=== PATIENT | female | born 1990 | race Caucasian/White ===

== ENCOUNTER → 2019-08-22 13:06 | Outpatient (BNVA) | payer OTHER, SELFPAY | PROVIDERS: Visit Provider Registered Nurse | DX: Z20.828 Contact with and (suspected) exposure to other viral communicable diseases (principal) | CPT/HCPCS: 87635 ==

== ENCOUNTER 2021-02-11 12:48 | Outpatient (CLI) | payer OTHER, SELFPAY ==
--- NOTE | 2021-02-11 13:00 | MR_ITS ---
WS: [id number] MRI BRAIN WITHOUT CONTRAST HISTORY: Headache, unspecified/ ANESTHESIA OF SKIN COMPARISON: None available. TECHNIQUE: Diffusion imaging, multiplanar T1, T2 and FLAIR imaging obtained. Patient refused IV contrast. No evidence for acute infarct or hemorrhage. Ibarra-white matter differentiation is normal. No remote or acute infarcts are volume loss. Ventricles and extra-axial spaces are normal. No inferior displacement of cerebellar tonsils. The sella turcica and pituitary gland are unremarkabl e. No abnormality noted involving the cranial nerves or the cerebellopontine angles on this unenhance d study. Normal fat Meckel's cave. Dural venous sinuses and [place] of [place] demonstrate no abnormality on this unenhanced studies. Paranasal sinuses: Very small amount of fluid in the maxillary sinuses bilaterally. Mastoid air cells: Normal. Calvarium and scalp: Intact. MR/MR head wo con* [id number] IMPRESSION: 1. No prior infarct or hemorrhage or signal abnormality. 2. Patient refused IV contrast. Cannot evaluate for subtle enhancement of the cranial nerves. 3. Very small amount of fluid in the maxillary sinuses.
== END 2021-02-11 12:49 | disposition home or self-care (01) ==
PROVIDERS: Visit Provider Nurse Practitioner Family
DX: R20.0 Anesthesia of skin (principal); R51.9 Headache, unspecified
CPT/HCPCS: 70551

== ENCOUNTER 2021-10-10 21:21 | Emergency (ER) | payer MEDICAID, SELFPAY ==
[2021-10-10 21:39] VITALS: BP 127/78; PULSE 74; RESP 18; TEMP 36.6; O2SAT 97; BMI 24.6
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
== END 2021-10-10 22:09 | disposition home or self-care (01) ==
PROVIDERS: Emergency Provider Physician Assistant; PCP Nurse Practitioner Family
DX: T23.161A Burn of first degree of back of right hand, initial encounter (principal); X16.XXXA Contact with hot heating appliances, radiators and pipes, initial encounter
CPT/HCPCS: 99281

== ENCOUNTER 2021-11-06 20:40 | Emergency (ER) | payer MEDICAID, SELFPAY ==
[2021-11-06 20:59] VITALS: BP 109/70; PULSE 69; RESP 16; TEMP 37; O2SAT 98; BMI 25.7
--- NOTE | 2021-11-06 21:07 | ED_ITS ---
HPI - General Adult General: Chief complaint: Urogenital-Male Stated complaint: Wants to be tested for STDs Time Seen by Provider: 11/06/21 21:06 History of Present Illness: Transgender female comes in today for complaints of itching and penile lesions and scrotal lesions. Patient denies significant pain or discomfort. Patient is biologically male transitioning to be female. Patient appears in no acute distress. Patient is requesting evaluation for STIs. Associated symptoms: Reports rash; Deny chest pain or dyspnea Review of Systems Const: Denies: fever(s) Card: Denies: chest pain Resp: Denies: dyspnea Skin/Breast: Reports: rash and pruritus PFSH ED PFSH: Medical History Exposure to COVID-19 virus Social History Adopted: No Caregiver/support person: Yes Lives independently: Yes Current occupational status: employed History of recent travel: No Sexually active: Yes Current gender identity: Trans [id number] Physical Exam Const: COMMON NORMALS: alert HENMT: HEAD & SCALP: normal to inspection Neck/C-Spine: COMMON NORMALS: full ROM Resp: COMMON NORMALS: normal respiratory effort Cardio: COMMON NORMALS: regular rate and regular rhythm RATE: regular rate RHYTHM: regular rhythm Neuro: SENSORIUM/ORIENTATION: Yes alert Course Vital Signs: Vital signs: Vital Signs Temperature 98.6 F 11/06/21 21:16 Pulse Rate 69 11/06/21 21:16 Respiratory Rate 16 11/06/21 21:16 Blood Pressure 109/70 11/06/21 21:16 Pulse Oximetry 98 11/06/21 21:16 Oxygen Delivery Me thod 11/06/21 21:16 MDM - General Adult Medical Decision Making 31-year-old transgendered female comes in today for concerns of lesions to the scrotum and penis. Patient also reports itching and discomfort. On exam there is no noticeable lesions to either the scrotum or penis. No significant rashes noted. Differential diagnosis includes but not limited to STI, dermatitis, malingering. Cultures of the lesions were sent to lab for bacterial and viral. Blood was sent for RPR and HIV testing. Urine was sent for gonorrhea and chlamydia. Reviewed exam with patient with recommendations for follow-up. Patient reported understanding. Lab Data Laboratory Results Urine Color Yellow (Yellow) 11/06/21 21:10 Urine Appearance Clear (CLEAR) 11/06/21 21:10 Urine pH 6.5 (5-7) 11/06/21 21:10 Ur Specific Vaughn 1.010 (1.005-1.030) 11/06/21 21:10 Urine Protein Neg (Negative) 11/06/21 21:10 Urine Glucose (UA) Norm (Normal) 11/06/21 21:10 Urine Ketones Negative (Negative) 11/06/21 21:10 Urine Blood Neg (Negative) 11/06/21 21:10 Urine Nitrate Negative (Negative) 11/06/21 21:10 Urine Bilirubin Neg (Negative) 11/06/21 21:10 Urine Urobilinogen Norm mg/dL (Negative) 11/06/21 21:10 Ur Leukocyte Esterase Negative (Negative) 11/06/21 21:10 Discharge Plan Discharge Patient Disposition: Home Clinical Impression: Exposure to STD, Dermatitis Condition: Stable Prescriptions: New hydrocortisone 2.5 % cream 1 applic topical BID PRN (Reason: skin irritation) Qty: 30 0RF No Action estradiol 1 mg tablet 0.5 mg PO DAILY gabapentin 600 mg tablet 600 mg PO BID spironolactone 50 mg tablet 50 mg PO DAILY baclofen 10 mg tablet 10 mg PO TID PRN (Reason: muscle spasm) Qty: 30 0RF Discharge Orders: Discharge ED (Routine); Ordered 11/06/21 Ordered By: Natalio Davalos Discharge Diet: Usual diet Discharge Activity: Increase activity as tolerated Patient Instructions: Sexually Transmitted Diseases (ED), Dermatitis (ED) Activity Restrictions/Additional Instructions: Avoid harsh soaps which may be contributing to your itching and skin rash. Use hydrocortisone cream twice a day as needed for itching and discomfort. Testing will take at least 1 week for STDs. The testing for the monkey pox may take longer. Follow-up with primary care for further instruction and evaluation. Return to ER for new concerns. Coding Level of Care Code ED Beater Engineer Helper for Gail Fwd Exam Detailed
[2021-11-06 21:16] VITALS: BP 109/70; PULSE 69; RESP 16; TEMP 37; O2SAT 98
[2021-11-06 21:20] LABS: Add Urine Microscopic? NO; Charge for UA Resulting for Rev
[2021-11-06 21:33] LABS: Urine Appearance Clear (CLEAR); Urine Color Yellow (Yellow); pH Urine 6.5 (5-7)
[2021-11-06 21:34] LABS: Bilirubin Urine Neg (Negative); Blood Urine Neg (Negative); Glucose Urine UA Norm (Normal); Ketones Urine Negative (Negative); Leukocyte Esterase Urine Negative (Negative); Nitrate Urine Negative (Negative); Protein Urine Neg (Negative); Urobilinogen Urine Norm (Negative)
[2021-11-06 23:12] LABS: HIV 1 & 2 Antibody Non-Reactive (Non-Reactiv); HIV 1 & 2 Antigen Non-Reactive (Non-Reactiv)
[2021-11-10 10:32] LABS: RPR w(Moniotor) w/REFL Titer NON-REACTIVE (NON-REACTIVE)
== END 2021-11-06 22:05 | disposition home or self-care (01) ==
PROVIDERS: Emergency Provider Nurse Practitioner Family
DX: L30.9 Dermatitis, unspecified (principal); Z20.2 Contact with and (suspected) exposure to infections with a predominantly sexual mode of transmission
CPT/HCPCS: 81003; 86592; 87491; 87591; 87806; 99283

== ENCOUNTER 2021-12-25 20:16 | Emergency (ER) | payer MEDICAID, SELFPAY ==
[2021-12-25 20:23] VITALS: BP 132/85; PULSE 71; RESP 16; TEMP 36.1; O2SAT 98
--- NOTE | 2021-12-25 21:44 | ED_ITS ---
HPI - General Adult General: Chief complaint: General Medical Stated complaint: R side face numbness Time Seen by Provider: 12/25/21 21:44 History of Present Illness: Ariadne Carlson is a 31-year-old transgender individual male to female who presents to the emergency department due to c oncern over facial pain. She reports onset of symptoms in approximately January without specific known provoking event. Previously she was treated for trigeminal neuralgia however that physician is no longer in the area and gabapentin at that time was not significant relieving. She did have an MRI without contrast which did not show a clear etiology. Over the past few weeks symptoms have worsened. Does associate headaches, intermittent vision changes which is monocular and improves with closing right eye though these are intermittent as well. At times paresthesias in the right upper and lower extremity. Intensity symptoms when present is moderate to severe. Course has persisted. No other specific changes in health, exacerbating, or alleviating factors identified. Onset (ago): month(s) Severity: moderate and severe Relieving factors: none Exacerbating factors: movement Associated symptoms: Reports headache(s) and other Review of Systems General: Reports: 10 or more systems reviewed and unremarkable except in HPI and below Neuro: Reports: headache(s) PFSH ED PFSH: Medical History Exposure to COVID-19 virus Psychiatric care Social History (Updated 12/29/21 @ 09:10 by Fabian Gurrola LPN) Smoking and tobacco status: current every day smoker cigarettes Packs smoked per day: 0.25 Years cigarettes smoked: 15 Quit status (tobacco): has tried quititng Number of times tried to quit tobacco: 3 Second hand smoke exposure: Yes Smoking risk assessment/counseling performed?: No Alcohol intake: current Alcohol intake frequency: few times a week Alcohol type: hard liquor Desire information about alcohol rehabilitation?: No Counseling given: No Desire information about substance/drug rehabilitation?: No Counseling given: No Adopted: No Caregiver/support person: Yes Lives independently: Yes Current occupational status: employed History of recent travel: No Sexually active: Yes Current gender identity: Trans [id number] Physical Exam Const: COMMON NORMALS: patient oriented x3 and alert GENERAL APPEARANCE: cooperative and well developed HENMT: COMMON NORMALS: normocephalic, atraumatic, external ears normal, EAC's normal and TM's normal bilaterally HEAD & SCALP: normocephalic and atraumatic EXTERNAL EAR: Yes external ears normal and Yes mastoids normal EXTERNAL AUDITORY CANAL: EAC's normal TYMPANIC MEMBRANE: TM's normal bilaterally THROAT: posterior oropharynx normal OTHER: No exacerbation of symptoms with percussion of trigeminal region. No overlying skin lesions. Eye: COMMON NORMALS: conjunctivae normal CONJUNCTIVA: Yes conjunctivae normal SCLERA: sclerae normal Neck/C-Spine: COMMON NORMALS: supple GENERAL: Yes trachea midline Resp: COMMON NORMALS: normal respiratory effort EFFORT & INSPECTION: Yes able to speak in complete sentences Cardio: COMMON NORMALS: regular rate and regular rhythm RATE: regular rate RHYTHM: regular rhythm GI: COMMON NORMALS: Soft to palpation PALPATION: Yes Soft to palpation and No Tenderness to palpation present (GI) PERCUSSION: normal to percussion Extremity: GENERAL: Yes normal exam except as noted and No edema Neuro: COMMON NORMALS: patient oriented x3, CN's II-XII intact bilaterally and moves all extremities SENSORIUM/ORIENTATION: Yes alert and No Orientation impaired Psych: COMMON NORMALS: mental status grossly normal and Normal thought process present THOUGHT PROCESS: Normal thought process present Course Vital Signs: Vital signs: Vital Signs Temperature 97.0 F L 12/25/21 20:23 Pulse Rate 71 12/25/21 20:23 Respiratory Rate 16 12/25/21 20:23 Blood Pressure 132/85 12/25/21 20:23 Pulse Oximetry 98 12/25/21 20:23 Oxygen Delivery Me thod 12/25/21 20:23 MDM - General Adult Medical Decision Making 31-year-old transgender individual presenting to the emergency department due to facial numbness. There are no focal deficits appreciated on clinical exam. Pain is not reproducible with palpation though does occur intermittently throughout exam. Exact etiology is unclear. Treat patient with migraine cocktail that provided some relief. Prior MRI reviewed. Laboratory studies without acute pathology to explain symptoms. Given history, exam, improvement, and description of symptoms patient is appropriate for outpatient management. Reasonable to trial carbamazepine for possible trigeminal neuralgia. Patient is agreeable with plan and satisfactory for outpatient management. Return precautions discussed. Medical Records I reviewed the patient's medical records. Lab Data I reviewed the patient's lab results. : 12/25/21 23:15 12/25/21 23:15 Laboratory Results WBC 7.3 10^3/uL (4.0-10.0) 12/25/21 23:15 Corrected WBC Cancelled 12/25/21 22:53 RBC 4.01 10^6/uL (4.1-5.3) L 12/25/21 23:15 Hgb 12.4 g/dL (11.5-15.3) 12/25/21 23:15 Hct 36.0 % (37.0-47.0) L 12/25/21 23:15 MCV 89.8 fl (81-99) 12/25/21 23:15 MCH 30.9 pg (28.0-34.0) 12/25/21 23:15 MCHC 34.4 g/dL (30.0-36.0) 12/25/21 23:15 RDW 12.0 % (12.1-15.1) L 12/25/21 23:15 Plt Count 268 10^3/cmm (130-400) 12/25/21 23:15 MPV 9.0 fL (7.4-10.4) 12/25/21 23:15 Gran % Cancelled 12/25/21 22:53 Neut % (Auto) 50.1 % 12/25/21 23:15 Lymph % (Auto) 36.0 % 12/25/21 23:15 Monroe % (Auto) 9.2 % 12/25/21 23:15 Eos % (Auto) 3.9 % 12/25/21 23:15 Baso % (Auto) 0.7 % 12/25/21 23:15 Neut # (Auto) 3.64 10^3/uL (1.8-7.7) 12/25/21 23:15 Lymph # (Auto) 2.6 10^3/uL (0.8-4.8) 12/25/21 23:15 Monroe # (Auto) 0.7 10^3/uL (0.2-0.9) 12/25/21 23:15 Eos # (Auto) 0.3 10^3/uL (0.0-0.8) 12/25/21 23:15 Baso # (Auto) 0.1 10^3/uL (0.0-0.1) 12/25/21 23:15 Absolute Gran (auto) Cancelled 12/25/21 22:53 Nucleated RBC % (auto) 0 % 12/25/21 23:15 Nucleated RBCs # 0.0 /100WBC 12/25/21 23:15 Sodium 140 mmol/L (136-145) 12/25/21 23:15 Potassium 4.2 mmol/L (3.5-5.1) 12/25/21 23:15 Chloride 103 mmol/L (98-107) 12/25/21 23:15 Carbon Dioxide 27 mmol/L (22-29) 12/25/21 23:15 Anion Gap 14.2 (5-19) 12/25/21 23:15 BUN 15 mg/dL (6-20) 12/25/21 23:15 Creatinine 0.9 mg/dL (0.5-0.9) 12/25/21 23:15 GFR Calculation 74.0 mL/min (90-130) L 12/25/21 23:15 Glucose 91 mg/dL (65-115) 12/25/21 23:15 Calculated Osmolality 290 mOsm/kg (285-295) 12/25/21 23:15 Calcium 9.8 mg/dL (8.5-10.5) 12/25/21 23:15 Total Bilirubin 0.5 mg/dL (0.15-1.2) 12/25/21 23:15 AST 11 U/L (0-32) 12/25/21 23:15 ALT 8 U/L (0-33) 12/25/21 23:15 Alkaline Phosphatase 52 U/L (35-105) 12/25/21 23:15 Total Protein 7.1 g/dL (6.6-8.7) 12/25/21 23:15 Albumin 4.2 g/dL (3.5-5.2) 12/25/21 23:15 Globulin 2.9 g/dL (1.3-4.6) 12/25/21 23:15 Discharge Plan Discharge Patient Disposition: Home Clinical Impression: Atypical facial pain, Headache Condition: Stable Prescriptions: New carbamazepine 100 mg tablet extended release 12 hr 100 mg PO BID Qty: 60 0RF Rx Instructions: begin at 100 mg twice daily, increase to 100 in AM and 200 PM after 3 days then 200 and 200 after 3 days Reglan 10 mg tablet 10 mg PO Q6H PRN (Reason: headache) Qty: 20 0RF No Action estradiol 1 mg tablet 0.5 mg PO DAILY gabapentin 600 mg tablet 600 mg PO BID baclofen 10 mg tablet 10 mg PO TID PRN (Reason: muscle spasm) Qty: 30 0RF spironolactone 50 mg tablet 100 mg PO DAILY trazodone 50 mg tablet 100 mg PO .HS PRN (Reason: insomnia) Qty: 60 1RF fluoxetine [Prozac] 20 mg capsule 20 mg PO DAILY Qty: 30 1RF hydrocortisone 2.5 % cream 1 applic topical BID PRN (Reason: skin irritation) Qty: 30 0RF Discharge Orders: Discharge ED (Routine); Ordered 12/26/21 Ordered By: Fabian Cook Discharge Diet: Usual diet Discharge Activity: Increase activity as tolerated Patient Instructions: Trigeminal Neuralgia (ED), Acute Headache (ED), Pain Management Activity Restrictions/Additional Instructions: Thank you for visiting the emergency department. You were seen and evaluated for facial pain. The exact cause of your symptoms is unclear. I recommend follow-up with primary care for consideration of further referral. Please watch for side effects as discussed with new prescriptions. Return to the emergency department for worsening symptoms, any new neurologic deficits, or anything else that you are concerned about and feel needs emergency department evaluation. Coding Level of Care Code ED Certified Residential Medication Aide for Gail Leung Exam Comprehensive
--- NOTE | 2021-12-25 23:06 | PC.NURSE ---
IV attempt x 2 unsuccessful. pt refuses further attempt. provider notified.
[2021-12-25 23:25] LABS: Basophils # 0.1 10^3/uL (0.0-0.1); Basophils % 0.7 %; Eosinophils # 0.3 10^3/uL (0.0-0.8); Eosinophils % 3.9 %; Hemoglobin 12.4 g/dL (11.5-15.3); Lymphocytes # 2.6 10^3/uL (0.8-4.8); Mean Corpuscular HGB Conc 34.4 g/dL (30.0-36.0); Mean Corpuscular Hemoglobin 30.9 pg (28.0-34.0); Mean Corpuscular Volume 89.8 fl (81-99); Monocytes # 0.7 10^3/uL (0.2-0.9); Monocytes % 9.2 %; Neutrophils # 3.64 10^3/uL (1.8-7.7); Neutrophils % 50.1 %; Nucleated Red Blood Cells % 0 %; Platelet Count 268 10^3/cmm (130-400); Red Blood Count 4.01 10^6/uL (4.1-5.3); White Blood Count 7.3 10^3/uL (4.0-10.0)
[2021-12-25] MEDS: diphenhydrAMINE 25 mg Capsule PO (23:28)
[2021-12-25] MEDS: metoclopramide 10 mg Tablet PO (23:28)
[2021-12-25] MEDS: acetaminophen 500 mg Tablet 1000 MG PO (23:28)
[2021-12-25 23:50] LABS: Alanine Aminotransferase 8 U/L (0-33); Albumin Level 4.2 g/dL (3.5-5.2); Alkaline Phosphatase 52 U/L (35-105); Anion Gap 14.2 (5-19); Aspartate Amino Transferase 11 U/L (0-32); Blood Urea Nitrogen 15 mg/dL (6-20); Calcium 9.8 mg/dL (8.5-10.5); Carbon Dioxide 27 mmol/L (22-29); Chloride 103 mmol/L (98-107); Globulin 2.9 g/dL (1.3-4.6); Glucose 91 mg/dL (65-115); Osmolality Calculated 290 mOsm/kg (285-295); Potassium 4.2 mmol/L (3.5-5.1); Sodium 140 mmol/L (136-145); Total Bilirubin 0.5 mg/dL (0.15-1.2); Total Protein 7.1 g/dL (6.6-8.7)
--- NOTE | 2021-12-26 11:30 | DCPLANNER ---
tool crib manager had message to speak with patient about getting established with a primary care physician. tool crib manager called phone number [phone], phone number is not accepting phone calls at this time. tool crib manager unable to speak with patient or leave a voicemail for patient.
== END 2021-12-26 00:45 | disposition home or self-care (01) ==
PROVIDERS: Emergency Provider Emergency Medicine
DX: R51.9 Headache, unspecified (principal); F17.210 Nicotine dependence, cigarettes, uncomplicated
CPT/HCPCS: 36415; 80053; 85025; 99283; J8597

== ENCOUNTER 2022-01-05 08:36 | Emergency (ER) | payer MEDICAID, SELFPAY ==
[2022-01-05 08:54] VITALS: BMI 27.0
[2022-01-05 09:00] VITALS: BP 124/87; PULSE 81; RESP 18; TEMP 36.4; O2SAT 97
--- NOTE | 2022-01-05 09:04 | PC.NURSE ---
pt in vertical flow
--- NOTE | 2022-01-05 09:07 | W.ED.BACK ---
HPI - Back Pain/Injury General: Chief Complaint: Back Pain/Injury Stated Complaint: Back pain Time Seen by Provider: 01/05/22 08:46 History of Present Illness: Patient is a 31-year-old female comes to the ED with lower back pain. 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 and felt some pain in the left lower back. Pain is not improved over the past couple days. Lifting any objects causes pain in her lower back. Denies any cauda equina symptoms or any pain radiating down her leg. Associated symptoms: Deny abdominal pain, chills, dysuria, fatigue, fever(s), hematuria, nausea or vomiting Review of Systems Const: Denies: fever(s), chills or fatigue Eyes: Denies: change in vision or eye discomfort ENMT: Denies: throat pain, odynophagia, nasal discharge or nasal congestion Card: Denies: chest pain, palpitations, edema, swelling of feet/ankles, dyspnea on exertion or orthopnea Resp: Denies: dyspnea, productive cough or non-productive cough GI: Denies: abdominal pain, nausea, vomiting, diarrhea, constipation or hematochezia : Denies: flank pain, dysuria or hematuria Musc: Reports: back pain; Denies: neck pain or extremity swelling Skin/Breast: Denies: rash or new lesions Neuro: Denies: headache(s), numbness in extremities or weakness in extremities PFS ED PFSH: Medical History (Updated 01/06/22 @ 07:29 by MICHAEL Centeno) Exposure to COVID-19 virus No pertinent family history Psychiatric care Social History Smoking and tobacco status: current every day smoker cigarettes Packs smoked per day: 0.25 Years cigarettes smoked: 15 Quit status (tobacco): has tried quititng Number of times tried to quit tobacco: 3 Second hand smoke exposure: Yes Smoking risk assessment/counseling performed?: No Alcohol intake: current Alcohol intake frequency: few times a week Alcohol type: hard liquor Desire information about alcohol rehabilitation?: No Counseling given: No Desire information about substance/drug rehabilitation?: No Counseling given: No Adopted: No Caregiver/support person: Yes Lives independently: Yes Current occupational status: employed History of recent travel: No Sexually active: Yes Current gender identity: Trans [id number] Physical Exam Const: COMMON NORMALS: no acute distress, patient oriented x3 and alert GENERAL APPEARANCE: cooperative and comfortable HENMT: COMMON NORMALS: normocephalic HEAD & SCALP: normocephalic MOUTH: Normal oral and palatal mucosa present THROAT: posterior oropharynx normal and uvula midline Neck/C-Spine: COMMON NORMALS: supple GENERAL: Yes normal visual inspection Resp: COMMON NORMALS: normal respiratory effort, No retractions, No use of accessory muscles and clear to auscultation bilaterally AUSCULTATION: clear to auscultation bilaterally Cardio: COMMON NORMALS: regular rate, regular rhythm, S1 normal heart sound present, S2 normal heart sound present, No gallops present (Cardio), No clicks present (Cardio), No murmurs present (Cardio) and Peripheral pulses 2+ throughout RATE: regular rate RHYTHM: regular rhythm HEART SOUNDS: S1 normal heart sound present and S2 normal heart sound present PERIPHERAL PULSES: Peripheral pulses 2+ throughout GI: COMMON NORMALS: Normal to inspection, nondistended, normoactive bowel sounds present, Soft to palpation, non-tender and no masses PALPATION: Yes Soft to palpation : COMMON NORMALS: Yes no CVA tenderness BLADDER/KIDNEY EXAM: Yes no CVA tenderness Back/Pelvis: COMMON NORMALS: no CVA tenderness LUMBAR SPINE/LOWER BACK: Yes lumbar ROM normal, No lumbar spinal tenderness and Yes paraspinal muscle tenderness Lumbar paraspinal muscle tenderness: left Extremity: COMMON NORMALS: normal to inspection Neuro: COMMON NORMALS: patient oriented x3 SENSORIUM/ORIENTATION: Yes alert GAIT: Yes Normal gait present Skin: GENERAL SKIN EXAM: dry skin Course Vital Signs: Vital signs: Vital Signs Temperature 97.5 F L 01/05/22 09:00 Pulse Rate 81 01/05/22 09:00 Respiratory Rate 18 01/05/22 09:00 Blood Pressure 124/87 01/05/22 09:00 Pulse Oximetry 97 01/05/22 09:00 Oxygen Delivery Me thod 01/05/22 09:00 MDM - Back Pain/Injury Medical Decision Making Patient is a 31-year-old female comes to the ED with lower back pain. 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 and felt some pain in the left lower back. Pain is not improved over the past couple days. Lifting any objects causes pain in her lower back. Denies any cauda equina symptoms or any pain radiating down her leg. Vitals are stable. Exam shows some lumbar paraspinal muscle tenderness on the left side but no spinal tenderness. She is diagnosed with strain of lumbar region and given a dose of Toradol and Norflex. She was discharged home with a prescription for some Flexeril and Celebrex for pain. Told to follow-up with her PCP within the next week for reevaluation. Patient understood and agreed with plan. Discharge Plan Discharge Patient Disposition: Home Clinical Impression: Strain of lumbar region Qualifiers: Encounter type: initial encounter Qualified Code(s): S39.012A - Strain of muscle, fascia and tendon of lower back, initial encounter Condition: Stable Prescriptions: New Celebrex 100 mg capsule 100 mg PO BID PRN (Reason: pain) Qty: 20 0RF cyclobenzaprine 10 mg tablet 10 mg PO BID PRN (Reason: muscle spasm) Qty: 20 0RF No Action estradiol 1 mg tablet 0.5 mg PO DAILY gabapentin 600 mg tablet 600 mg PO BID baclofen 10 mg tablet 10 mg PO TID PRN (Reason: muscle spasm) Qty: 30 0RF spironolactone 50 mg tablet 100 mg PO DAILY trazodone 50 mg tablet 100 mg PO .HS PRN (Reason: insomnia) Qty: 60 1RF fluoxetine [Prozac] 20 mg capsule 20 mg PO DAILY Qty: 30 1RF hydrocortisone 2.5 % cream 1 applic topical BID PRN (Reason: skin irritation) Qty: 30 0RF carbamazepine 100 mg tablet extended release 12 hr 100 mg PO BID Qty: 60 0RF Rx Instructions: begin at 100 mg twice daily, increase to 100 in AM and 200 PM after 3 days then 200 and 200 after 3 days Reglan 10 mg tablet 10 mg PO Q6H PRN (Reason: headache) Qty: 20 0RF Discharge Orders: Discharge ED (Routine); Ordered 01/05/22 Ordered By: Jesús Graham Discharge Diet: Regular Discharge Activity: Increase activity as tolerated Activity Restrictions/Additional Instructions: Follow-up with medical provider as directed. Take medications as prescribed. Return to the ER or your medical provider if condition worsens. Please read and understand discharge instructions. Thank you for choosing [facility] for your healthcare needs today. Please realize this is an emergency room and that we are providing you with a medical screening exam and this may not be complete and all inclusive of all the testing and or work up that you may need to determine your ailment or severity of your illness. It is very important that you follow up as instructed or that you return to the Emergency Department should you have concerns or if your condition changes or worsens in any way. 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
[2022-01-05] MEDS: ketorolac 60 mg/2 mL INJ IM (09:33)
[2022-01-05] MEDS: orphenadrine 30 mg/mL Inj 2 mL 60 MG IM (09:33)
== END 2022-01-05 10:16 | disposition home or self-care (01) ==
PROVIDERS: Emergency Provider Physician Assistant
DX: S39.012A Strain of muscle, fascia and tendon of lower back, initial encounter (principal); F17.210 Nicotine dependence, cigarettes, uncomplicated; X50.0XXA Overexertion from strenuous movement or load, initial encounter
CPT/HCPCS: 96372; 99284; J1885; J2360

== ENCOUNTER → 2022-03-10 16:00 | Outpatient (BNVA) | payer MEDICAID, SELFPAY | PROVIDERS: PCP Nurse Practitioner Family; Visit Provider Registered Nurse Neonatal Intensive Care | DX: J02.9 Acute pharyngitis, unspecified (principal); B34.9 Viral infection, unspecified | CPT/HCPCS: 87071; 87880 ==

== ENCOUNTER 2022-05-14 00:02 | Emergency (ER) | payer MEDICAID, SELFPAY ==
[2022-05-14 00:07] VITALS: BP 121/81; PULSE 77; RESP 16; TEMP 36.4; O2SAT 98; BMI 26.2
[2022-05-14 00:31] VITALS: BP 121/81; PULSE 77; RESP 16; TEMP 36.4; O2SAT 98
--- NOTE | 2022-05-14 00:32 | ED_ITS ---
HPI - Dental/Oral General: Chief complaint: Dental/Oral Stated complaint: jaw pain,facial pain Time Seen by Provider: 05/14/22 00:07 History of Present Illness: 32-year-old transgender person that identifies as female, comes in tonight with complaints of left jaw pain. Patient reports history of trigeminal neuralgia. Patient is able to eat and drink and swallow. Patient reports no fever. Patient appears nontoxic. Patient reports that she has had worse pain tonight but she was not able to control for routine medications. Associated symptoms: Denies fever(s) Review of Systems Const: Denies: fever(s) ENMT: Reports: other (Left jaw pain) Card: Denies: chest pain Resp: Denies: dyspnea Musc: Denies: neck pain PFSH ED PFSH: Medical History (Updated 05/14/22 @ 00:39 by ROBYN Chairez) Exposure to COVID-19 virus No pertinent family history Psychiatric care Social History (Updated 01/29/22 @ 11:13 by Fabian Gurrola LPN) Smoking and tobacco status: current every day smoker cigarettes Packs smoked per day: 0.25 Years cigarettes smoked: 15 and e-cigarettes E-Cigarette Details: vaporizer device and with nicotine E-cig/vape details: Refill/7,000 puffs. Quit status (tobacco): has tried quititng Number of times tried to quit tobacco: 3 Second hand smoke exposure: No Smoking risk assessment/counseling performed?: No Alcohol intake: current Alcohol intake frequency: few times a week Alcohol type: wine Desire information about alcohol rehabilitation?: No Counseling given: Yes (Alcohol & meds don't mix.) Desire information about substance/drug rehabilitation?: No Counseling given: No Adopted: No Caregiver/support person: Yes Lives independently: Yes Current occupational status: employed Sexually active: Yes Current gender identity: Trans [id number] Physical Exam Const: COMMON NORMALS: alert HENMT: COMMON NORMALS: normocephalic, TM's normal bilaterally and Normal external nose present HEAD & SCALP: normocephalic and other (Tenderness left trans mandibular joint) FACE & SINUS: normal facial exam NOSE: Normal external nose present TYMPANIC MEMBRANE: TM's normal bilaterally MOUTH: Normal oral and palatal mucosa present THROAT: posterior oropharynx normal Neck/C-Spine: CERVICAL SPINE: No Cervical spine tenderness Resp: COMMON NORMALS: normal respiratory effort and clear to auscultation bilaterally AUSCULTATION: clear to auscultation bilaterally Cardio: COMMON NORMALS: regular rate and regular rhythm RATE: regular rate RHYTHM: regular rhythm Extremity: COMMON NORMALS: normal to inspection Neuro: SENSORIUM/ORIENTATION: Yes alert Skin: COMMON NORMALS: turgor normal GENERAL SKIN EXAM: turgor normal Course Vital Signs: Vital signs: Vital Signs Temperature 97.6 F 05/14/22 00:31 Pulse Rate 77 05/14/22 00:31 Respiratory Rate 16 05/14/22 00:31 Blood Pressure 121/81 05/14/22 00:31 Pulse Oximetry 98 05/14/22 00:31 Oxygen Delivery Me thod 05/14/22 00:31 MDM - Dental/Oral Medical Decision Making 32-year-old transgender person that identifies as female comes in today for complaints of left jaw pain. On exam tympanic membrane's are normal. No obvious abscess or dental abnormality. Patient has tenderness in the TMJ. No redness or swelling of the face is noted. Differential diagnosis includes but not limited to dental abscess, exacerbation of trigeminal neuralgia, TMJ disorder. Patient reported a history of trigeminal neuralgia. This could just be exasperation of that syndrome. I will go ahead and treat though for inflammation of the TMJ joint with dexamethasone, ketorolac, and pain control with hydrocodone. Patient was dosed in the ER and recommended to follow-up with primary care. Patient requested neurologist for further evaluation of his trigeminal neuralgia as it has been several years and he has worsening symptoms. Case management was requested for a follow-up appointment. Patient reported understanding and agreed to plan. Discharge Plan Discharge Patient Disposition: Home Clinical Impression: TMJ (temporomandibular joint disorder), History of trigeminal neuralgia Condition: Stable Prescriptions: No Action estradiol 1 mg tablet 0.5 mg PO DAILY spironolactone 50 mg tablet 100 mg PO DAILY hydroxyzine HCl 50 mg tablet 50 mg PO QID PRN (Reason: insomnia) Qty: 120 2RF fluoxetine 40 mg capsule 40 mg PO DAILY Qty: 30 2RF fluoxetine 20 mg capsule 20 mg PO DAILY Qty: 30 2RF Rx Instructions: To be taken with 40 mg cap for total of 60 mg daily. buspirone 5 mg tablet 5 mg PO TID Qty: 90 2RF carbamazepine 100 mg tablet extended release 12 hr 100 mg PO BID Qty: 60 0RF Rx Instructions: begin at 100 mg twice daily, increase to 100 in AM and 200 PM after 3 days then 200 and 200 after 3 days Celebrex 100 mg capsule 100 mg PO BID PRN (Reason: pain) Qty: 20 0RF Discharge Orders: Discharge ED (Routine); Ordered 05/14/22 Ordered By: Natalio Davalos Referrals: Leann Smith NP [Primary Care Provider] - Discharge Diet: Usual diet Discharge Activity: Increase activity as tolerated Patient Instructions: Pain Management Activity Restrictions/Additional Instructions: Follow-up with primary care regarding further treatment for trigeminal neuralg ia. Use acetaminophen ibuprofen to help control pain. Drink plenty of water with medications. privacy compliance manager will contact you regarding follow-up appointment with further evaluation and treatment with neurologist. Coding Level of Care Code ED Chairman Of The Board for Gail Leung
[2022-05-14] MEDS: dexamethasone 10 mg/mL INJ IM (00:53)
[2022-05-14] MEDS: ketorolac 30 mg/mL INJ IM (00:53)
[2022-05-14] MEDS: HYDROcodone-acetaminophen 5-325 mg Tablet 1 TAB PO (00:54)
--- NOTE | 2022-05-14 13:48 | DCPLANNER ---
Addendum entered by Arminda Liu 05/27/22 08:43: Patient had a follow up appointment scheduled with neurology - patient did not attend appointment. Addendum entered by Arminda Liu 05/21/22 07:53: Patient has a follow up appointment scheduled for Sunday, May 22, 2022 at 8:[address] Montelongo at neurology. Clinic will call patient with appointment information. Original Note: assistant manager pt had message to schedule a follow up appointment for patient with neurology. assistant manager pt sent patients information to the front office staff at neurology. Patients information will be printed and reviewed. Clinic will call patient with appointment information.
== END 2022-05-14 00:57 | disposition home or self-care (01) ==
PROVIDERS: Emergency Provider Nurse Practitioner Family; PCP Nurse Practitioner Family
DX: M26.609 Unspecified temporomandibular joint disorder, unspecified side (principal); G50.0 Trigeminal neuralgia
CPT/HCPCS: 96372; 99284; J1100; J1885

== ENCOUNTER 2022-05-16 17:30 | Emergency (ER) | payer MEDICAID, SELFPAY ==
[2022-05-16 17:32] VITALS: BP 147/92; PULSE 81; RESP 16; TEMP 36.8; O2SAT 98
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
[2022-05-16 19:02] LABS: Basophils % 0.5 %; Eosinophils # 0.1 10^3/uL (0.0-0.8); Eosinophils % 1.2 %; Hematocrit 37.2 % (37.0-47.0); Hemoglobin 12.5 g/dL (11.5-15.3); Lymphocytes % 24.8 %; Mean Corpuscular HGB Conc 33.6 g/dL (30.0-36.0); Mean Corpuscular Volume 89.4 fl (81-99); Mean Platelet Volume 8.9 fL (7.4-10.4); Monocytes # 0.6 10^3/uL (0.2-0.9); Monocytes % 7.1 %; Neutrophils # 5.33 10^3/uL (1.8-7.7); Neutrophils % 66.3 %; Nucleated Red Blood Cells % 0 %; Platelet Count 324 10^3/cmm (130-400); Red Blood Count 4.16 10^6/uL (4.1-5.3); Red Cell Distribution Width 11.9 % (12.1-15.1); White Blood Count 8.1 10^3/uL (4.0-10.0)
[2022-05-16] MEDS: tizanidine 4 mg Tablet PO (19:02)
[2022-05-16] MEDS: ketorolac 30 mg/mL INJ IM (19:02)
[2022-05-16] MEDS: HYDROcodone-acetaminophen 10-325 mg Tablet 1 TAB PO (19:02)
[2022-05-16 19:21] LABS: Alanine Aminotransferase 33 U/L (0-33); Albumin Level 4.7 g/dL (3.5-5.2); Alkaline Phosphatase 55 U/L (35-105); Aspartate Amino Transferase 28 U/L (0-32); Blood Urea Nitrogen 14 mg/dL (6-20); Calcium 9.6 mg/dL (8.5-10.5); Carbon Dioxide 27 mmol/L (22-29); Chloride 99 mmol/L (98-107); Globulin 2.8 g/dL (1.3-4.6); Glomerular Filtration Rate 98.3 mL/min (90-130); Glucose 90 mg/dL (65-115); Osmolality Calculated 286 mOsm/kg (285-295); Sodium 138 mmol/L (136-145); Total Bilirubin 0.3 mg/dL (0.15-1.2); Total Protein 7.5 g/dL (6.6-8.7)
[2022-05-16 20:04] LABS: Anion Gap 16.4 (5-19); Potassium 4.4 mmol/L (3.5-5.1)
[2022-05-16 20:17] VITALS: PULSE 89; RESP 16; O2SAT 98
[2022-05-17 01:42] LABS: Carbamazepine Tegretol 3.3 ug/mL (4.0-12.0)
== END 2022-05-16 20:19 | disposition home or self-care (01) ==
PROVIDERS: Emergency Provider Emergency Medicine; PCP Nurse Practitioner Family
DX: G50.0 Trigeminal neuralgia (principal)
CPT/HCPCS: 36415; 80053; 80156; 85025; 96372; 99284; J1885

== ENCOUNTER 2022-05-18 21:38 | Emergency (ER) | payer MEDICAID, SELFPAY ==
[2022-05-18 21:55] VITALS: BP 150/97; PULSE 82; RESP 17; TEMP 36.7; O2SAT 96; BMI 26.2
--- NOTE | 2022-05-18 22:15 | W.ED.DENTAL ---
HPI - Dental/Oral General: Chief complaint: Dental/Oral Stated complaint: Tooth Ache Time Seen by Provider: 05/18/22 22:03 History of Present Illness: Patient is a 32-year-old female comes to the ED with dental pain, nausea and vomiting. Patient was seen by urgent care for same complaint earlier today was discharged home with a prescription for Augmentin. She has been having this dental pain now for approximately 2 to 3 weeks. She rates the pain currently a 9 out of 10. Dental pain is located in the left top molars and radiates to her left ear. Today she has been having episodes of nausea and vomiting due to the pain. She has not contacted a local dentist yet to set up an appointment. Associated symptoms: Denies fever(s) or odynophagia Review of Systems Const: Denies: fever(s), chills or fatigue Eyes: Denies: change in vision or eye discomfort ENMT: Reports: dental pain; Denies: throat pain, odynophagia, nasal discharge or nasal congestion Card: Denies: chest pain, palpitations, edema, swelling of feet/ankles, dyspnea on exertion or orthopnea Resp: Denies: dyspnea, productive cough or non-productive cough GI: Reports: nausea and vomiting; Denies: abdominal pain, diarrhea, constipation or hematochezia : Denies: flank pain, dysuria or hematuria Musc: Denies: neck pain, back pain or extremity swelling Skin/Breast: Denies: rash or new lesions Neuro: Denies: headache(s), numbness in extremities or weakness in extremities [facility] ED PFSH: Medical History Exposure to COVID-19 virus No pertinent family history Psychiatric care Social History Smoking and tobacco status: current every day smoker cigarettes Packs smoked per day: 0.25 Years cigarettes smoked: 15 and e-cigarettes E-Cigarette Details: vaporizer device and with nicotine E-cig/vape details: Refill/7,000 puffs. Quit status (tobacco): has tried quititng Number of times tried to quit tobacco: 3 Second hand smoke exposure: No Smoking risk assessment/counseling performed?: No Alcohol intake: current Alcohol intake frequency: few times a week Alcohol type: wine Desire information about alcohol rehabilitation?: No Counseling given: Yes (Alcohol & meds don't mix.) Desire information about substance/drug rehabilitation?: No Counseling given: No Adopted: No Caregiver/support person: Yes Lives independently: Yes Current occupational status: employed Sexually active: Yes Current gender identity: Trans [id number]-sy-[id number] Physical Exam Const: COMMON NORMALS: no acute distress, patient oriented x3 and alert GENERAL APPEARANCE: cooperative HENMT: COMMON NORMALS: normocephalic HEAD & SCALP: normocephalic MOUTH: Normal oral and palatal mucosa present, lip normal and tongue normal THROAT: posterior oropharynx normal and uvula midline OTHER: Dental caries to back right molars. Some mild surrounding gingival edema. Rest of exam is benign. Neck/C-Spine: COMMON NORMALS: supple GENERAL: Yes normal visual inspection Resp: COMMON NORMALS: normal respiratory effort, No retractions, No use of accessory muscles and clear to auscultation bilaterally AUSCULTATION: clear to auscultation bilaterally Cardio: COMMON NORMALS: regular rate, regular rhythm, S1 normal heart sound present, S2 normal heart sound present, No gallops present (Cardio), No clicks present (Cardio), No murmurs present (Cardio) and Peripheral pulses 2+ throughout RATE: regular rate RHYTHM: regular rhythm HEART SOUNDS: S1 normal heart sound present and S2 normal heart sound present PERIPHERAL PULSES: Peripheral pulses 2+ throughout GI: COMMON NORMALS: Normal to inspection, nondistended, normoactive bowel sounds present, Soft to palpation, non-tender and no masses PALPATION: Yes Soft to palpation : COMMON NORMALS: Yes no CVA tenderness BLADDER/KIDNEY EXAM: Yes no CVA tenderness Back/Pelvis: COMMON NORMALS: no CVA tenderness Extremity: COMMON NORMALS: normal to inspection Neuro: COMMON NORMALS: patient oriented x3 SENSORIUM/ORIENTATION: Yes alert GAIT: Yes Normal gait present Skin: GENERAL SKIN EXAM: dry skin Course Vital Signs: Vital signs: Vital Signs Temperature 98.0 F 05/18/22 21:55 Pulse Rate 87 05/18/22 23:16 Respiratory Rate 15 05/18/22 23:16 Blood Pressure 150/97 05/18/22 21:55 Pulse Oximetry 97 05/18/22 23:16 Oxygen Delivery Me thod 05/18/22 21:55 [facility] - Dental/Oral Medical Decision Making Patient is a 32-year-old female comes to the ED with dental pain, nausea and vomiting. Patient was seen by urgent care for same complaint earlier today was discharged home with a prescription for Augmentin. She has been having this dental pain now for approximately 2 to 3 weeks. She rates the pain currently a 9 out of 10. Dental pain is located in the left top molars and radiates to her left ear. Today she has been having episodes of nausea and vomiting due to the pain. She has not contacted a local dentist yet to set up an appointment. Vitals are stable. Patient appears nontoxic and in no acute distress. Dental caries to back right molars. Some mild surrounding gingival edema. Rest of exam is benign. Patient was given a dose of IM Zofran and morphine here in the ED. Her symptoms improved and she was able to tolerate p.o. fluids. She was diagnosed with dental pain and discharged home with a couple tablets of hydrocodone and a prescription for Zofran for nausea. To help with acute pain later tonight. She was told to continue taking her previously prescribed Augmentin. Follow-up with dentist as soon as possible to have dental pain treated. Patient understood agree with plan. Discharge Plan Discharge Patient Disposition: Home Clinical Impression: Pain, dental Condition: Stable Prescriptions: New ondansetron 4 mg tablet,disintegrating 4 mg PO Q8H PRN (Reason: nausea and vomiting) Qty: 15 0RF No Action spironolactone 50 mg tablet 100 mg PO DAILY estradiol 1 mg tablet 5 mg PO DAILY hydroxyzine HCl 50 mg tablet 50 mg PO QID PRN (Reason: insomnia) Qty: 120 2RF fluoxetine 40 mg capsule 40 mg PO DAILY Qty: 30 2RF fluoxetine 20 mg capsule 20 mg PO DAILY Qty: 30 2RF Rx Instructions: To be taken with 40 mg cap for total of 60 mg daily. buspirone 5 mg tablet 5 mg PO TID Qty: 90 2RF amoxicillin-pot clavulanate 875-125 mg tablet 1 tab PO BID 10 Days Qty: 20 0RF carbamazepine 100 mg tablet extended release 12 hr 100 mg PO BID Qty: 60 0RF Rx Instructions: begin at 100 mg twice daily, increase to 100 in AM and 200 PM after 3 days then 200 and 200 after 3 days carbamazepine 400 mg tablet extended release 12 hr 400 mg PO BID Qty: 60 0RF tizanidine 4 mg capsule 4 mg PO Q6H PRN (Reason: muscle spasticity) Qty: 60 0RF Rx Instructions: do not exceed 3 doses per 24 hrs Celebrex 100 mg capsule 100 mg PO BID PRN (Reason: pain) Qty: 20 0RF Discharge Orders: Discharge ED (Routine); Ordered 05/18/22 Ordered By: Jesús Graham Referrals: Leann Smith NP [Primary Care Provider] - Discharge Diet: Regular Discharge Activity: Increase activity as tolerated Patient Instructions: Toothache (ED) Activity Restrictions/Additional Instructions: Follow-up with dentist to have dental pain treated as soon as possible. Take medications as prescribed. Return to the ER or your medical provider if condition worsens. Please read and understand discharge instructions. Thank you for choosing [facility] for your healthcare needs today. Please realize this is an emergency room and that we are providing you with a medical screening exam and this may not be complete and all inclusive of all the testing and or work up that you may need to determine your ailment or severity of your illness. It is very important that you follow up as instructed or that you return to the Emergency Department should you have concerns or if your condition changes or worsens in any way. Coding Level of Care Code ED [facility] House Supervisor for Gail Leung
[2022-05-18 22:28] VITALS: RESP 15
[2022-05-18] MEDS: morphine 4 mg/mL SDV 1 mL IM (22:28)
[2022-05-18] MEDS: ondansetron 2 mg/ML SDV 2 mL 4 MG IM (22:29)
[2022-05-18 23:16] VITALS: PULSE 87; RESP 15; O2SAT 97
== END 2022-05-18 23:17 | disposition home or self-care (01) ==
PROVIDERS: Emergency Provider Physician Assistant; PCP Nurse Practitioner Family
DX: K08.89 Other specified disorders of teeth and supporting structures (principal); F17.210 Nicotine dependence, cigarettes, uncomplicated
CPT/HCPCS: 96372; 99284; J2270; J2405

== ENCOUNTER 2022-05-19 15:34 | Emergency (ER) | payer MEDICAID, SELFPAY ==
[2022-05-19 15:37] VITALS: BP 147/109; PULSE 79; RESP 22; TEMP 36.4; O2SAT 98; BMI 26.2
--- NOTE | 2022-05-19 16:06 | ED_ITS ---
HPI - Dental/Oral General: Chief complaint: Dental/Oral Stated complaint: tooth pain and possible OD Time Seen by Provider: 05/19/22 15:48 Source: patient Mode of arrival: ambulatory Limitations: no limitations History of Present Illness: Patient is a 32-year-old biological male that identifies as female here for complaints of left upper dental pain. This hammond patient's fifth visit just this week for identical symptoms. She has been seen on 05/14, 05/16, two visits on 05/18, and then today. She has been diagnosed with dental pain, dental abscess, and trigeminal neuralgia. Seems on every visit they have done something differently as far as treatment in the ED as well as prescriptions to go home with including Dexamethasone, Toradol, Hydrocodone, Tegretol, Zanaflex Augmentin, Zofran, Morphine. She is here stating she still has pain and is nauseous. She does have a dentist appointment in 2 days. MD Complaint: tooth pain Teeth map: 1. Onset (ago): day(s) Duration: constant Severity: severe Relieving factors: nothing Exacerbating factors: nothing Context: history of dental caries and poor dental care Associated symptoms: Denies ear or mastoid pain, fever(s) or odynophagia Treatment prior to arrival: oral analgesic Review of Systems Const: Denies: fever(s), chills, body aches, fatigue or malaise Eyes: Denies: change in vision, blurry vision, photophobia, floaters or seeing flashes ENMT: Reports: dental pain; Denies: throat pain, odynophagia, bleeding gums, dry mouth, ear or mastoid pain, nasal discharge, nasal congestion, post nasal drip or sinus pain Card: Denies: chest pain Resp: Denies: dyspnea GI: Reports: nausea and vomiting; Denies: abdominal pain or diarrhea : Denies: flank pain, difficulty voiding, dysuria, urinary frequency or urinary urgency Musc: Denies: neck pain, back pain, extremity pain or joint pain Skin/Breast: Denies: rash Neuro: Denies: headache(s), numbness in extremities, weakness in extremities, sensory changes or dizziness PFS ED PFSH: Medical History Exposure to COVID-19 virus No pertinent family history Psychiatric care Social History Smoking and tobacco status: current every day smoker cigarettes Packs smoked per day: 0.25 Years cigarettes smoked: 15 and e-cigarettes E-Cigarette Details: vaporizer device and with nicotine E-cig/vape details: Refill/7,000 puffs. Quit status (tobacco): has tried quititng Number of times tried to quit tobacco: 3 Second hand smoke exposure: No Smoking risk assessment/counseling performed?: No Alcohol intake: current Alcohol intake frequency: few times a week Alcohol type: wine Desire information about alcohol rehabilitation?: No Counseling given: Yes (Alcohol & meds don't mix.) Desire information about substance/drug rehabilitation?: No Counseling given: No Adopted: No Caregiver/support person: Yes Lives independently: Yes Current occupational status: employed Sexually active: Yes Current gender identity: Trans Hsim-ap-Rrnmpy Physical Exam 2 Const: COMMON NORMALS: no acute distress, patient oriented x3, no limitations, alert and well nourished GENERAL APPEARANCE: cooperative ORIENTATION/CONSCIOUSNESS: Yes awake, Yes oriented to person, Yes oriented to place and Yes oriented to time HENMT: COMMON NORMALS: normocephalic, atraumatic, Normal external nose present, moist oral mucous membranes, oropharynx normal and gingiva normal HEAD & SCALP: normal to inspection, normocephalic and atraumatic FACE & SINUS: normal facial exam; no erythema and no edema NOSE: Normal external nose present MOUTH: Normal oral and palatal mucosa present, lip normal, tongue normal and other (floor of mouth is soft ) TEETH & GINGIVA: Yes poor dentition TEETH & GINGIVA IMAGES: 1. broken/severely decayed tooth; no abscess THROAT: posterior oropharynx normal, tonsils normal and uvula midline Neck/C-Spine: COMMON NORMALS: no lymphadenopathy GENERAL: Yes normal visual inspection Resp: COMMON NORMALS: normal respiratory effort and clear to auscultation bilaterally AUSCULTATION: clear to auscultation bilaterally Cardio: COMMON NORMALS: regular rate and regular rhythm RATE: regular rate RHYTHM: regular rhythm Neuro: MYRON COMA SCALE: document GCS findings Myron coma scale eye opening: Spontaneous [place] coma scale verbal response: Orientated [place] coma scale motor response: Obey commands Myron coma scale total score: 15 COMMON NORMALS: patient oriented x3, CN's II-XII intact bilaterally, moves all extremities, no focal motor deficits and no sensory deficits noted SENSORIUM/ORIENTATION: Yes alert, Yes oriented to person, Yes oriented to place and Yes oriented to time Course Vital Signs: Vital signs: Vital Signs Temperature 97.5 F L 05/19/22 15:37 Pulse Rate 79 05/19/22 15:37 Respiratory Rate 22 H 05/19/22 15:37 Blood Pressure 147/109 05/19/22 15:37 Pulse Oximetry 98 05/19/22 15:37 Oxygen Delivery Me thod 05/19/22 15:37 MDM - Dental/Oral Medical Decision Making At this time I don't know what else to do for patient. She has a dentist appointment in 2 days. She has been on several different medications over the past week for treatment of dental pain/dental abscess/trigeminal neuralgia. I don't think continuing to prescribe pain medications as appropriate as she states they are not helping anyway. Based on my exam I do feel pain is more so related to her dental discomfort vs a trigeminal neuralgia. Recommend she keep dentist appointment on as scheduled. Will give her something for nausea. Discharge Plan Discharge Patient Disposition: Home Clinical Impression: Toothache Condition: Stable Prescriptions: New Reglan 10 mg tablet 10 mg PO Q6H Qty: 15 0RF No Action spironolactone 50 mg tablet 100 mg PO DAILY estradiol 1 mg tablet 5 mg PO DAILY hydroxyzine HCl 50 mg tablet 50 mg PO QID PRN (Reason: insomnia) Qty: 120 2RF fluoxetine 40 mg capsule 40 mg PO DAILY Qty: 30 2RF fluoxetine 20 mg capsule 20 mg PO DAILY Qty: 30 2RF Rx Instructions: To be taken with 40 mg cap for total of 60 mg daily. buspirone 5 mg tablet 5 mg PO TID Qty: 90 2RF amoxicillin-pot clavulanate 875-125 mg tablet 1 tab PO BID 10 Days Qty: 20 0RF carbamazepine 100 mg tablet extended release 12 hr 100 mg PO BID Qty: 60 0RF Rx Instructions: begin at 100 mg twice daily, increase to 100 in AM and 200 PM after 3 days then 200 and 200 after 3 days carbamazepine 400 mg tablet extended release 12 hr 400 mg PO BID Qty: 60 0RF tizanidine 4 mg capsule 4 mg PO Q6H PRN (Reason: muscle spasticity) Qty: 60 0RF Rx Instructions: do not exceed 3 doses per 24 hrs ondansetron 4 mg tablet,disintegrating 4 mg PO Q8H PRN (Reason: nausea and vomiting) Qty: 15 0RF Celebrex 100 mg capsule 100 mg PO BID PRN (Reason: pain) Qty: 20 0RF Discharge Orders: Discharge ED (Routine); Ordered 05/19/22 Ordered By: Gini Granda Referrals: Leann Smith NP [Primary Care Provider] - Coding Level of Care Code ED Animal Shelter Supervisor for Gail Leung
== END 2022-05-19 16:24 | disposition home or self-care (01) ==
PROVIDERS: Emergency Provider Physician Assistant; PCP Nurse Practitioner Family
DX: K08.89 Other specified disorders of teeth and supporting structures (principal); F17.210 Nicotine dependence, cigarettes, uncomplicated; F17.290 Nicotine dependence, other tobacco product, uncomplicated
CPT/HCPCS: 99283

== ENCOUNTER 2023-08-08 17:03 | Emergency (ER) | payer MEDICAID, SELFPAY ==
[2023-08-08 17:04] VITALS: BP 115/77; PULSE 74; RESP 18; O2SAT 97; BMI 27.0
[2023-08-08 17:10] VITALS: TEMP 36.8
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
[2023-08-08 17:31] VITALS: PULSE 75; RESP 16; O2SAT 97
[2023-08-08] MEDS: albuterol 2.5 mg/3 mL Neb INHALATION (17:31)
[2023-08-08 17:40] VITALS: PULSE 78
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
[2023-08-08] MEDS: ketorolac 10 mg Tablet PO (17:43)
[2023-08-08 17:49] VITALS: BP 100/80; PULSE 80; O2SAT 100
== END 2023-08-08 18:07 | disposition home or self-care (01) ==
PROVIDERS: Emergency Provider Emergency Medicine; PCP Nurse Practitioner Family
DX: T75.1XXA Unspecified effects of drowning and nonfatal submersion, initial encounter (principal); R51.9 Headache, unspecified; F17.210 Nicotine dependence, cigarettes, uncomplicated; F17.290 Nicotine dependence, other tobacco product, uncomplicated; V92.06XA Drowning and submersion due to fall off (nonpowered) inflatable craft, initial encounter; Y92.828 Other wilderness area as the place of occurrence of the external cause
CPT/HCPCS: 71045; 94640; 99283; J7613

== ENCOUNTER → 2023-08-11 15:20 | Outpatient (BNVA) | payer MEDICAID, SELFPAY | PROVIDERS: PCP Nurse Practitioner Family; Visit Provider Registered Nurse Neonatal Intensive Care | DX: R39.9 Unspecified symptoms and signs involving the genitourinary system (principal) | CPT/HCPCS: 81000; 87086; 87184 ==

== ENCOUNTER → 2023-09-15 11:13 | Outpatient (BNVA) | payer MEDICAID, SELFPAY | PROVIDERS: PCP Nurse Practitioner Family; Visit Provider Nurse Practitioner | DX: M25.512 Pain in left shoulder (principal) | CPT/HCPCS: 73030 ==

== ENCOUNTER 2023-10-27 12:12 | Emergency (ER) | payer MEDICAID, SELFPAY ==
[2023-10-27 13:00] VITALS: BP 127/83; PULSE 84; RESP 18; TEMP 36.7; O2SAT 98; BMI 25.7
--- NOTE | 2023-10-27 13:16 | US_ITS ---
WS: [id number] Ultrasound RIGHT groin INDICATION: RIGHT groin mass TECHNIQUE: Ultrasound RIGHT groin area of concern FINDINGS: Ultrasound: Palpable area RIGHT groin area of concern. Heterogeneous ovoid complex cystic a nd solid appearing lesion measuring 1.7 x 1.2 x 2.5 cm. Surrounding soft tissue induration. Periphera l vascularity but no central vascularity. Findings suspicious for suppurative or centrally necrotic l ymph node with abscess US/US soft tissue/extremity [id number] IMPRESSION: Findings suspicious for suppurative or centrally necrotic lymph n ode with abscess. Recommend correlation for overlying cellulitis and infection.
--- NOTE | 2023-10-27 13:16 | ED_ITS ---
HPI - Skin/Abscess/Foreign Bdy General: Chief complaint: Skin/Abscess/Foreign Body Stated complaint: groin pain Time Seen by Provider: 10/27/23 13:01 Source: patient Mode of arrival: ambulatory Limitations: no limitations History of Present Illness: Patient is a 33-year-old biologic male who identifies as female here for evaluation of a possible abscess to her right groin. She states she has had the se lesions before most of which will go away on their own but she has had a few of them have to be drained before. She is not having any systemic symptoms. Denies any penile discharge, dysuria, or genitalia rashes. She states she is monogamous with her . Denies known history of staph/MRSA. Denies history of hidradenitis suppurativa. No recent cat scratches. MD complaint: abscess/boil Onset (ago): day(s) Tetanus up to date: yes Location: genitals (R groin) Severity: mild Pain Consistency: constant Relieving factors: none Exacerbating factors: none Context: none Associated symptoms: Reports no associated symptoms; Deny chills, fever(s), nausea or vomiting Treatments prior to arrival: none Related Data Home Medications Medication Instructions Recorded Confirmed spironolactone 50 mg tablet 100 mg PO DAILY 12/29/21 09/15/23 estradiol 1 mg tablet 5 mg PO DAILY 05/18/22 09/15/23 propranolol 20 mg tablet 40 mg PO BID 06/22/23 09/15/23 sumatriptan succinate 50 mg tablet See Rx Instructions PO .COMPLEX 06/22/23 09/15/23 Previous Rx's Medication Instructions Recorded buspirone 15 mg tablet 15 mg PO BID #60 tabs 06/22/23 escitalopram oxalate 20 mg tablet 20 mg PO .q am #30 tabs 06/22/23 nystatin 100,000 unit/gram topical 1 applic topical BID 7 days #15 08/11/23 cream grams diclofenac sodium 3 % topical gel 1 applic topical BID PRN pain #100 09/15/23 grams sulfamethoxazole 800 1 tab PO BID 7 days #14 tabs 10/27/23 mg-trimethoprim 160 mg tablet (Bactrim DS) Allergies Allergy/AdvReac Type Severity Reaction Status Date / Time Penicillins AdvReac Severe ADR-Vomitin Verified 09/15/23 10:57 g Review of Systems Const: Denies: fever(s), chills, body aches, fatigue or malaise GI: Denies: abdominal pain, nausea, vomiting, diarrhea or change in bowel habits : Denies: flank pain, difficulty voiding, dysuria, urinary frequency, urinary urgency, urinary hesitancy, hematuria or genital pruritis Musc: Denies: neck pain, back pain, extremity pain or joint pain Skin/Breast: Reports: other (R inguinal abscess) PFSH ED PFSH: Medical History Psychiatric care No pertinent family history Exposure to COVID-19 virus Social History Smoking and tobacco/nicotine status: unknown if used tobacco/nicotine Quit status (tobacco/nicotine): has tried quititng Number of times tried to quit tobacco: 3 Second hand smoke exposure: No Alcohol intake: current Alcohol intake frequency: few times a week Alcohol type: wine Substance/Drug Use: never Adopted: No Caregiver/support person: Yes Lives independently: Yes Current occupational status: employed Sexually active: Yes Current gender identity: Trans [id number] Physical Exam Const: COMMON NORMALS: no acute distress, average body habitus, patient oriented x3, no limitations, healthy appearing, alert and well nourished GI: COMMON NORMALS: Normal to inspection, nondistended, normoactive bowel sounds present, Soft to palpation and non-tender PALPATION: Yes Soft to palpation : COMMON NORMALS: Yes no CVA tenderness BLADDER/KIDNEY EXAM: Yes no CVA tenderness OTHER: normal appearing penis with no meatal discharge or irritation; no rashes/lesions noted; small 1.5cm firm palpating abscess vs lymph node to R groin Back/Pelvis: COMMON NORMALS: no CVA tenderness Neuro: COMMON NORMALS: patient oriented x3 SENSORIUM/ORIENTATION: Yes alert Procedures Abscess I/D Site: other (R groin) Side (if applicable): right Local Anesthetic: lidocaine 1% Amount of anesthesia used (mL): 3.0 Technique: incised with #11 blade Amount of fluid expressed (mL): 2.0 Packing used?: plain Course Vital Signs: Vital signs: Vital Signs Temperature 98.1 F 10/27/23 13:00 Pulse Rate 84 10/27/23 13:00 Respiratory Rate 18 10/27/23 13:00 Blood Pressure 127/83 10/27/23 13:00 Pulse Oximetry 98 10/27/23 13:00 Oxygen Delivery Me thod Room Air 10/27/23 13:00 MDM - Skin/Abscess/Foreign Bdy Medicial Decision Making Prelim US findings discussed with Bob who stated this was not a lymph node and feels this most likely is an abscess. I&D performed and was able to get purulent material from area. US official read suspicious for suppurative or centrally necrotic lymph node with abscess. She will be placed on antibiotics and I would like her to follow up with PCP. DDx includes inguinal staph abscess, hidradenitis suppurativa, STI, cat scratch disease, malignancy, HIV. I want her to follow up with primary care next week. Return precautions given. Lab Data Radiology Impressions Soft Tissue Ultrasound 10/27/23 13:16 IMPRESSION: Findings suspicious for suppurative or centrally necrotic lymph node with abscess. Recommend correlation for overlying cellulitis and infection. All radiology interpretation(s) finalized by discharge Discharge Plan Discharge Patient Disposition: Home Clinical Impression: Abscess of groin, right Condition: Stable Prescriptions: New Bactrim DS 800-160 mg tablet 1 tab PO BID 7 Days Qty: 14 0RF No Action spironolactone 50 mg tablet 100 mg PO DAILY estradiol 1 mg tablet 5 mg PO DAILY nystatin 100,000 unit/gram cream 1 applic topical BID 7 Days Qty: 15 0RF propranolol 20 mg tablet 40 mg PO BID sumatriptan succinate 50 mg tablet See Rx Instructions PO .COMPLEX Rx Instructions: take 1 tab at onset of headache; if no relief may repeat 1 tab after at least 2 hrs; max = 4 tabs/24 hr PO escitalopram oxalate 20 mg tablet 20 mg PO .q am Qty: 30 1RF Rx Instructions: Take one tablet daily buspirone 15 mg tablet 15 mg PO BID Qty: 60 1RF Rx Instructions: Take one tablet by mouth every morning and evening diclofenac sodium 3 % gel 1 applic topical BID PRN (Reason: pain) Qty: 100 0RF Discharge Orders: Discharge ED (Routine); Ordered 10/27/23 Ordered By: Gini Granda Referrals: Leann Smith NP [Primary Care Provider] - Activity Restrictions/Additional Instructions: As we discussed you can remove the packing in approximately 72 hours. I would like you to follow-up with primary care early next week for re-evaluation. Your official US result did mention the possibility of a necrotic lymph node-this may require further testing if you do not improve. Begin your antibiotics today. You need to return to the emergency department for worsening swelling, pain, drainage, or any other concerns you may have. Coding Level of Care Code ED Senior [employer] Net Developer for Gail Leung
[2023-10-27 14:43] VITALS: BP 115/68
[2023-10-27 14:44] VITALS: BP 115/68
== END 2023-10-27 14:54 | disposition home or self-care (01) ==
PROVIDERS: Emergency Provider Physician Assistant; PCP Nurse Practitioner Family
DX: L02.214 Cutaneous abscess of groin (principal); Z87.891 Personal history of nicotine dependence; F64.0 Transsexualism
CPT/HCPCS: 10060; 76882; 87070; 87075; 87205; 99284

== ENCOUNTER 2024-01-16 12:35 | Emergency (ER) | payer OTHER, MEDICAID, SELFPAY ==
[2024-01-16 12:44] VITALS: BP 129/80; PULSE 106; RESP 18; TEMP 38.4; O2SAT 98
--- NOTE | 2024-01-16 12:55 | XRR_ITS ---
PROCEDURE INFORMATION: Exam: XR Chest Exam date and time: 01/16/2024 1:03 PM Age: 33 years old Clinical indication: Patient HX: PT reports n/v, fevers, and migraine for about 5 days. ; Additional info: Fever TECHNIQUE: Imaging protocol: Radiologic exam of the chest. Views: 1 view. COMPARISON: CR (CHEST, ) 08/08/2023 5:21 PM FINDINGS: Tubes, catheters and devices: None. Lungs: The lungs appear clear. Pleural spaces: No pleural effusion. No pneumothorax. Heart/Mediastinum: Mediastinum and khari appear unremarkable. Bones/joints: No acute bony abnormality identified. XR/XR chest 1V portable [id number] IMPRESSION: No evidence for an acute cardiopulmonary process.
[2024-01-16 13:17] LABS: Basophils % 0.2 %; Eosinophils % 0.2 %; Hematocrit 42.3 % (36-47); Lymphocytes # 2.4 10^3/uL (0.8-4.8); Lymphocytes % 15.5 %; Mean Corpuscular Hemoglobin 28.9 pg (27-33); Mean Corpuscular Volume 84.8 fl (85-98); Mean Platelet Volume 9.1 fL (7.4-10.4); Monocytes # 1.6 10^3/uL (0.2-0.9); Monocytes % 10.7 %; Neutrophils # 11.09 10^3/uL (1.8-7.7); Neutrophils % 73.1 %; Nucleated Red Blood Cells % 0 %; Platelet Count 252 10^3/cmm (157-399); Red Blood Count 4.99 10^6/uL (3.85-5.65); Red Cell Distribution Width 11.9 % (12.1-15.1); White Blood Count 15.17 10^3/uL (3.29-11.43)
[2024-01-16] MEDS: ketorolac 30 mg/mL INJ IVP (13:21)
[2024-01-16] MEDS: ondansetron 2 mg/ML SDV 2 mL 4 MG IVP (13:21)
[2024-01-16] MEDS: sodium chloride 0.9% 1,000 ML 999 ML IV (13:22)
[2024-01-16 13:30] LABS: Alanine Aminotransferase 13 U/L (0-33); Albumin Level 4.3 g/dL (3.5-5.2); Alkaline Phosphatase 93 U/L (35-105); Aspartate Amino Transferase 17 U/L (0-32); Blood Urea Nitrogen 17 mg/dL (6-20); Calcium 9.6 mg/dL (8.5-10.5); Carbon Dioxide 24 mmol/L (22-29); Chloride 93 mmol/L (98-107); Globulin 4.1 g/dL (1.3-4.6); Glomerular Filtration Rate 57.9 mL/min (90-130); Glucose 115 mg/dL (65-115); Osmolality Calculated 280 mOsm/kg (285-295); Sodium 134 mmol/L (136-145); Total Bilirubin 0.9 mg/dL (0.15-1.2); Total Protein 8.4 g/dL (6.6-8.7)
[2024-01-16 13:32] LABS: Creatinine Clr Calc Pharmacy 92.1437
[2024-01-16 14:18] LABS: Bilirubin Urine 1+ (Negative); Blood Urine Negative (Negative); Glucose Urine UA Negative (Normal); Ketones Urine 3+ (Negative); Leukocyte Esterase Urine Trace (Negative); Nitrate Urine Negative (Negative); Protein Urine 2+ (Negative); Urine Appearance Clear (CLEAR); Urine Color Dark Yellow (Yellow)
[2024-01-16 14:23] LABS: Add Urine Microscopic? YES; Bacteria Urine None Seen /hpf; Squamous Epithelial Cell Urine 0-5 /hpf (0-5); WBC Urine 0-5 /hpf (0-5)
[2024-01-16 14:24] LABS: Specific Gravity, Urine 1.033 (1.005-1.030)
[2024-01-16 14:57] LABS: Covid PCR NEGATIVE (Negative); Influenza A NEGATIVE (Negative); Influenza B NEGATIVE (Negative); Respiratory Syncytial Virus Ce NEGATIVE (Negative)
--- NOTE | 2024-01-16 15:12 | W.ED.NAVMDI ---
HPI - Nausea/Vomiting/Diarrhea General: Chief complaint: Nausea/Vomiting/Diarrhea Stated complaint: fever, can not keep anything down Time Seen by Provider: 01/16/24 12:39 History of Present Illness: This patient is a 33-year-old male who presents to the emergency department complaining of a fever for the past 5 days along with nausea, vomiting, headache, body aches and pains and upper respiratory congestion. Associated nausea: Yes Associated symtoms: Reports headache(s) and nausea Related Data Home Medications Medication Instructions Recorded Confirmed sumatriptan succinate 50 mg tablet See Rx Instructions PO .COMPLEX 06/22/23 01/16/24 buspirone 10 mg tablet 10 mg PO BID 01/16/24 01/16/24 escitalopram oxalate 20 mg tablet 20 mg PO QAM 01/16/24 01/16/24 estradiol 2 mg tablet 5 mg PO DAILY 01/16/24 01/16/24 omeprazole 20 mg capsule,delayed 20 mg PO BEDTIME 01/16/24 01/16/24 release propranolol 40 mg tablet 40 mg PO BID 01/16/24 01/16/24 spironolactone 100 mg tablet 100 mg PO DAILY 01/16/24 01/16/24 Previous Rx's Medication Instructions Recorded ondansetron HCl 4 mg tablet 4 mg PO Q6H PRN nausea and 01/16/24 vomiting #20 tabs Allergies Allergy/AdvReac Type Severity Reaction Status Date / Time Penicillins AdvReac Severe ADR-Vomitin Verified 09/15/23 10:57 g Review of Systems General: Reports: 10 or more systems reviewed and unremarkable except in HPI and below Const: Reports: fever(s) ENMT: Reports: nasal congestion GI: Reports: nausea and vomiting Neuro: Reports: headache(s) [facility] ED PFSH: Medical History Psychiatric care No pertinent family history Exposure to COVID-19 virus Social History Smoking and tobacco/nicotine status: unknown if used tobacco/nicotine Quit status (tobacco/nicotine): has tried quititng Number of times tried to quit tobacco: 3 Second hand smoke exposure: No Alcohol intake: current Alcohol intake frequency: few times a week Alcohol type: wine Substance/Drug Use: never Adopted: No Caregiver/support person: Yes Lives independently: Yes Current occupational status: employed Sexually active: Yes Current gender identity: Trans [id number] Physical Exam Const: COMMON NORMALS: no acute distress, patient oriented x3 and no limitations GENERAL APPEARANCE: cooperative and comfortable HENMT: COMMON NORMALS: normocephalic, atraumatic, Normal nasal mucous membranes and turbinates present, moist oral mucous membranes and oropharynx normal HEAD & SCALP: normal to inspection, normocephalic and atraumatic FACE & SINUS: normal facial exam NOSE: Normal nasal mucous membranes and turbinates present Eye: COMMON NORMALS: Equal, round and reactive pupils present, EOMs intact bilaterally and conjunctivae normal GENERAL EYE: appearance normal, both eyes and all related structures CONJUNCTIVA: Yes conjunctivae normal PUPIL: Yes Equal, round and reactive pupils present Neck/C-Spine: COMMON NORMALS: supple and no JVD Chest: COMMONS NORMALS: normal inspection of the chest Resp: COMMON NORMALS: normal respiratory effort and clear to auscultation bilaterally AUSCULTATION: clear to auscultation bilaterally Cardio: COMMON NORMALS: no JVD, regular rate, regular rhythm, No gallops present (Cardio), No murmurs present (Cardio) and No rub (Cardio) RATE: regular rate RHYTHM: regular rhythm GI: COMMON NORMALS: Normal to inspection, nondistended, normoactive bowel sounds present, Soft to palpation and non-tender AUSCULTATION: Yes normoactive bowel sounds PALPATION: Yes Soft to palpation : COMMON NORMALS: Yes no CVA tenderness BLADDER/KIDNEY EXAM: Yes no CVA tenderness Back/Pelvis: COMMON NORMALS: no CVA tenderness and thoracic and lumbar spine normal to inspection Extremity: COMMON NORMALS: normal to inspection Neuro: COMMON NORMALS: patient oriented x3 and CN's II-XII intact bilaterally Psych: COMMON NORMALS: mental status grossly normal, Normal thought process present and cooperative THOUGHT PROCESS: Normal thought process present Skin: COMMON NORMALS: no rashes or lesions noted, turgor normal and no jaundice GENERAL SKIN EXAM: no rashes or lesions noted and turgor normal Course Vital Signs: Vital signs: Vital Signs Temperature 101.1 F H 01/16/24 12:44 Pulse Rate 106 H 01/16/24 12:44 Respiratory Rate 18 01/16/24 12:44 Blood Pressure 129/80 01/16/24 12:44 Pulse Oximetry 98 01/16/24 12:44 Oxygen Delivery Me thod Room Air 01/16/24 12:44 MDM - Nausea/Vomiting/Diarrhea Medical Decision Making Chest x-ray was normal. CBC revealed a white blood cell count of 15.2. CMP normal. Urine analysis normal. COVID, flu and RSV negative. Patient was given IV fluids, Zofran and Toradol. He is feeling significantly better. Appears to have a viral syndrome. I did prescribe Zofran for the nausea at home and recommended he take Tylenol and/or Motrin for fever cares, aches and pains. Push fluids and get some rest. Follow-up primary care physician later this week if no improvement. Lab Data 01/16/24 13:03 01/16/24 13:03 Radiology Impressions Chest X-Ray 01/16/24 12:55 IMPRESSION: No evidence for an acute cardiopulmonary process. Laboratory Results WBC 15.17 10^3/uL (3.29-11.43) H 01/16/24 13:03 RBC 4.99 10^6/uL (3.85-5.65) 01/16/24 13:03 Hgb 14.40 g/dL (11.27-16.99) 01/16/24 13:03 Hct 42.3 % (36-47) 01/16/24 13:03 MCV 84.8 fl (85-98) L 01/16/24 13:03 MCH 28.9 pg (27-33) 01/16/24 13:03 MCHC 34.0 g/dL (30-55) 01/16/24 13:03 RDW 11.9 % (12.1-15.1) L 01/16/24 13:03 Plt Count 252 10^3/cmm (157-399) 01/16/24 13:03 MPV 9.1 fL (7.4-10.4) 01/16/24 13:03 Neut % (Auto) 73.1 % 01/16/24 13:03 Lymph % (Auto) 15.5 % 01/16/24 13:03 Sunflower % (Auto) 10.7 % 01/16/24 13:03 Eos % (Auto) 0.2 % 01/16/24 13:03 Baso % (Auto) 0.2 % 01/16/24 13:03 Neut # (Auto) 11.09 10^3/uL (1.8-7.7) H 01/16/24 13:03 Lymph # (Auto) 2.4 10^3/uL (0.8-4.8) 01/16/24 13:03 Sunflower # (Auto) 1.6 10^3/uL (0.2-0.9) H 01/16/24 13:03 Eos # (Auto) 0.0 10^3/uL (0.0-0.8) 01/16/24 13:03 Baso # (Auto) 0.0 10^3/uL (0.0-0.1) 01/16/24 13:03 Nucleated RBC % (auto) 0 % 01/16/24 13:03 Nucleated RBCs # 0.0 /100WBC 01/16/24 13:03 Sodium 134 mmol/L (136-145) L 01/16/24 13:03 Potassium 4.0 mmol/L (3.5-5.1) 01/16/24 13:03 Chloride 93 mmol/L (98-107) L 01/16/24 13:03 Carbon Dioxide 24 mmol/L (22-29) 01/16/24 13:03 Anion Gap 21.0 (5-19) H 01/16/24 13:03 BUN 17 mg/dL (6-20) 01/16/24 13:03 Creatinine 1.1 mg/dL (0.5-0.9) H 01/16/24 13:03 GFR Calculation 57.9 mL/min (90-130) L 01/16/24 13:03 Glucose 115 mg/dL (65-115) 01/16/24 13:03 Calculated Osmolality 280 mOsm/kg (285-295) L 01/16/24 13:03 Calcium 9.6 mg/dL (8.5-10.5) 01/16/24 13:03 Total Bilirubin 0.9 mg/dL (0.15-1.2) 01/16/24 13:03 AST 17 U/L (0-32) 01/16/24 13:03 ALT 13 U/L (0-33) 01/16/24 13:03 Alkaline Phosphatase 93 U/L (35-105) 01/16/24 13:03 Total Protein 8.4 g/dL (6.6-8.7) 01/16/24 13:03 Albumin 4.3 g/dL (3.5-5.2) 01/16/24 13:03 Globulin 4.1 g/dL (1.3-4.6) 01/16/24 13:03 Urine Color Dark yellow (Yellow) A 01/16/24 13:33 Urine Appearance Clear (CLEAR) 01/16/24 13:33 Urine pH 6.0 (5-7) 01/16/24 13:33 Ur Specific [place] 1.033 (1.005-1.030) H 01/16/24 13:33 Urine Protein 2+ (Negative) A 01/16/24 13:33 Urine Glucose (UA) Negative (Normal) 01/16/24 13:33 Urine Ketones 3+ (Negative) H 01/16/24 13:33 Urine Blood Negative (Negative) 01/16/24 13:33 Urine Nitrate Negative (Negative) 01/16/24 13:33 Urine Bilirubin 1+ (Negative) H 01/16/24 13:33 Urine Urobilinogen 2.0 mg/dL (Negative) H 01/16/24 13:33 Ur Leukocyte Esterase Trace (Negative) A 01/16/24 13:33 Urine RBC 6-10 /hpf (0-2) 01/16/24 13:33 Urine WBC 0-5 /hpf (0-5) 01/16/24 13:33 Ur Squamous Epith Cells 0-5 /hpf (0-5) 01/16/24 13:33 Amorphous Sediment Not Reportable 01/16/24 13:33 Urine Bacteria None seen /hpf (NONE) 01/16/24 13:33 Hyaline Casts 0.40 /lpf 01/16/24 13:33 Coronavirus (PCR) Negative (Negative) 01/16/24 13:36 Influenza A (PCR) Negative (Negative) 01/16/24 13:36 Influenza Type B (PCR) Negative (Negative) 01/16/24 13:36 RSV (PCR) Negative (Negative) 01/16/24 13:36 All radiology interpretation(s) finalized by discharge Discharge Plan Discharge Patient Disposition: Home Clinical Impression: Viral syndrome Condition: Stable Prescriptions: New ondansetron HCl 4 mg tablet 4 mg PO Q6H PRN (Reason: nausea and vomiting) Qty: 20 0RF No Action sumatriptan succinate 50 mg tablet See Rx Instructions PO .COMPLEX Rx Instructions: take 1 tab at onset of headache; if no relief may repeat 1 tab after at least 2 hrs; max = 4 tabs/24 hr PO spironolactone 100 mg tablet 100 mg PO DAILY propranolol 40 mg tablet 40 mg PO BID buspirone 10 mg tablet 10 mg PO BID omeprazole 20 mg capsule,delayed release(DR/EC) 20 mg PO BEDTIME estradiol 2 mg tablet 5 mg PO DAILY escitalopram oxalate 20 mg tablet 20 mg PO QAM Discharge Orders: Discharge ED (Routine); Ordered 01/16/24 Ordered By: Efren Freitas Referrals: Leann Smith NP [Primary Care Provider] - Patient Instructions: Viral Syndrome (ED) Activity Restrictions/Additional Instructions: Follow-up with your primary care provider later this week if no improvement. Coding Level of Care Code ED Metallurgical Lab Technician for Gail Leung
[2024-01-16 15:32] VITALS: BP 121/72; PULSE 80; RESP 16; O2SAT 100
== END 2024-01-16 15:27 | disposition home or self-care (01) ==
PROVIDERS: Emergency Provider Emergency Medicine; PCP Nurse Practitioner Family
DX: B34.9 Viral infection, unspecified (principal); Z11.52 Encounter for screening for COVID-19; Z72.0 Tobacco use
CPT/HCPCS: 0241U; 36415; 71045; 80053; 81001; 85025; 96374; 96375; 99284; J1885; J2405; J7030